=== PATIENT | female | born 1965 | race African-American/Black ===

== ENCOUNTER 2017-04-16 09:15 | Outpatient (CLI) | payer BC | END 2017-04-16 09:16 | disposition home or self-care (01) | LOC: BICMAMMO 09:15 | PROVIDERS: ATTEND Obstetrics & Gynecology | DX: Z12.31 Encounter for screening mammogram for malignant neoplasm of breast (principal) | CPT/HCPCS: 77063 ==

== ENCOUNTER 2018-03-23 11:06 | Outpatient (CLI) | payer BC ==
--- NOTE | 2018-03-23 13:30 | ULT ---
ABDOMEN ULTRASOUND: HISTORY: Abdominal pain. COMPARISON: CT from 2016. TECHNIQUE: Real-time, self-scale, color-flow, and spectral analysis of the abdomen was performed. FINDINGS: The visualized portion of the aorta, IVC, and pancreas are unremarkable. The liver measures 16.4 cm in length. The spleen measures 6.5 cm in length. The gallbladder is normal. Normal gallbladder wal l thickness. No sonographic Reynoso sign. The common bile duct measures 5 mm. The right kidney measures 10.8 x 3.8 x 5.2 cm. The left kidney measures 9.9 x 5.3 x 6 cm. There is fullness of the right renal pelvis, as seen on the 2016 CT examination. The portal vein is patent with antegrade flow. IMPRESSION: Similar fullness in the right renal pelvis without overt hydronephrosis. No acute intraabdominal abn ormality. POS: CET
== END 2018-03-23 11:07 | disposition home or self-care (01) ==
LOC: ULT 11:06
PROVIDERS: ATTEND Family Medicine
DX: R10.9 Unspecified abdominal pain (principal)
CPT/HCPCS: 76700

== ENCOUNTER 2018-04-21 13:30 | Outpatient (CLI) | payer BC | END 2018-04-21 13:31 | disposition home or self-care (01) | LOC: BICMAMMO 13:30 | PROVIDERS: ATTEND Obstetrics & Gynecology | DX: Z12.31 Encounter for screening mammogram for malignant neoplasm of breast (principal) | CPT/HCPCS: 77063; 77067 ==

== ENCOUNTER 2019-03-06 12:07 | Outpatient (CLI) | payer OTHER ==
--- NOTE | 2019-03-06 12:25 | RAD ---
Chest 2 views HISTORY: Tobacco use. Psoriasis. COMPARISON: 05/30/2013. FINDINGS: Cardiac silhouette and pulmonary vasculature are unremarkable. Mediastinum is midline. No c onfluent airspace consolidation, pneumothorax, or pleural fluid are evident. IMPRESSION: No active cardiopulmonary abnormalities are demonstrated.
== END 2019-03-06 12:08 | disposition home or self-care (01) ==
LOC: BICRAD 12:07
PROVIDERS: ATTEND Internal Medicine Rheumatology
DX: L40.50 Arthropathic psoriasis, unspecified (principal); Z72.0 Tobacco use
CPT/HCPCS: 71046

== ENCOUNTER 2020-09-02 08:28 | Outpatient (CLI) | payer OTHER | END 2020-09-02 08:29 | disposition home or self-care (01) | LOC: BICRAD 08:28 | PROVIDERS: ATTEND Internal Medicine Rheumatology | DX: M47.816 Spondylosis without myelopathy or radiculopathy, lumbar region (principal); M47.817 Spondylosis without myelopathy or radiculopathy, lumbosacral region; M51.36 Other intervertebral disc degeneration, lumbar region; M51.37 Other intervertebral disc degeneration, lumbosacral region; M25.78 Osteophyte, vertebrae; I70.0 Atherosclerosis of aorta | CPT/HCPCS: 72110 ==

== ENCOUNTER 2023-07-02 13:25 | Outpatient (CLI) | payer OTHER | END 2023-07-02 13:26 | disposition home or self-care (01) | LOC: BICMAMMO 13:25 | PROVIDERS: ATTEND Student in an Organized Health Care Education/Training Program | DX: Z12.31 Encounter for screening mammogram for malignant neoplasm of breast (principal); Z80.3 Family history of malignant neoplasm of breast | CPT/HCPCS: 77063; 77067 ==